=== PATIENT | female | born 1985 | race Caucasian/White ===

== ENCOUNTER 2017-03-29 20:47 | Emergency (ER) | payer MEDICAID ==
[~2017-03-29] VITALS: Ht 170.2 cm; Wt 80.7 kg
[2017-03-29 21:39] LABS: ABSOLUTE NEUTROPHILS 7.1 thou/uL (1.4-8.2); EOSINOPHILS 2.7 % (0.0-3.0); HEMATOCRIT 42.4 % (37.0-47.0); HEMOGLOBIN 14.5 gm/dL (12.0-15.0); LYMPHOCYTES 35.1 % (24.0-44.0); MCH 30.4 pg (26.0-34.0); MCHC 34.1 g/dL (28.0-37.0); MCV 89.3 fL (80.0-100.0); MONOCYTES 4.9 % (1.0-8.0); PLATELET COUNT 300 thou/uL (150-400); POLYS 56.3 % (36.0-66.0); RBC 4.75 mil/uL (4.20-5.00); RDW 16.1 % (10.5-14.5); WBC 12.6 thou/uL (4.0-11.0)
[2017-03-29 21:43] LABS: MANUAL DIFF NO
[2017-03-29 21:47] LABS: CALCIUM 8.9 mg/dL (8.5-10.1); CREATININE 0.9 mg/dL (0.6-1.0); POTASSIUM 3.9 mmol/L (3.5-5.1)
[2017-03-29] MEDS ORDERED: CLEOCIN HCL150 MG PO (22:39)
[2017-03-29] MEDS ORDERED: NAPROSYN500 MG PO (22:39)
[2017-03-29 22:55] VITALS: BP 129/95
== END 2017-03-29 22:40 | disposition home or self-care (01) ==
LOC: ER 20:47
PROVIDERS: Emergency Medicine
DX: K04.7 Periapical abscess without sinus (principal); F17.210 Nicotine dependence, cigarettes, uncomplicated